=== PATIENT | male | born 1935 | race Caucasian/White ===

== ENCOUNTER → 2016-06-14 | Outpatient (CLI) | payer OTHER ==
[~2016-06-14] MED LIST: ACETAMINOPHEN325 M1 PO; ADALAT CC30 MG; ASA81BEC PO; CARDURA2 MG PO; CARDURA4 MG PO; COZAAR; DICLOFENAC SODI75 M1; DICLOFENAC SODI75 MG PO; FENOFIBRATE145 MG; FLOMAX0.4 MG PO; FLONASE 0.05%50 MCG NASAL; LIORESAL 10 MG10 MG PO; LISINOPRIL20 MG PO; LOPRESSOR; LOPRESSOR25 PO; PLAVIX 75 MG TA75 MG PO; PRAVACHOL; SIMVASTATIN20 MG PO; ZOLOFT 50 MG TA50 MG PO
--- NOTE | ~2016-06-14 | SLE ---
[facility] [address] [place] [address] POLYSOMNOGRAPHY STUDY Name: LESLIE GORMAN Room #: REG CL M..#: [id number] Admission: 06/14/16 Attend Phys: Hector Dobbs MD Discharge: Date of : 35 Report #: [id number] THIS REPORT FOR: //name// CC: Chang Dean MD HISTORY: 81-year-old, height 5 feet 7 inches, weight 206 pounds. Usually goes to bed between 9 and 10 p.m., gets out of bed 7 to 8 a.m. Does not know if he snores. No definite daytime somnolence. Sleep study October 2015 suggested a trial of BiPAP, IPAP of 20, EPAP of 8. On this download, his AHI was 40 on that setting. COMMENTS: PVCs noted with episodes of block. BiPAP TITRATION: Titrated IPAP of 14, EPAP of 8, IPAP is 16, EPAP of 8, IPAP of 17, EPAP of 8, IPAP of 19, EPAP of 8, IPAP of 20, EPAP of 8. At an IPAP of 20, EPAP of 8, the patient was seen for 13 minutes of which 7 minutes was in REM sleep. Apnea-hypopnea index was 0 events per sleep hour, low sat of 90%. The patient was not seen in supine REM sleep. He was seen in left lateral REM sleep. IMPRESSION: 1. History of obstructive sleep apnea. G47.33 2. A definite BiPAP setting where the patient was seen in supine REM sleep was not seen. 3. Significant arrhythmias. SUGGESTIONS: 1. In addition to specific therapy, the patient should be cautioned regarding driving or operating dangerous machinery unless fully alert. The patient should be counseled on attempting to achieve ideal body weight. 2. Usual sleep apnea suggestions recommended. 3. A Holter monitor may be considered. 4. BiPAP at IPAP of 20, EPAP of 8 with an Teresa full face large mask is recommended. Having the patient try to stay in the left lateral position. During our study because of the low baseline O2, 1 liter oxygen was added. 5. If signs and symptoms not improve with therapy, further evaluation is recommended. Please do not hesitate to contact if we may be of further assistance. 6. May need to consider AVAPS titration night. <ELECTRONICALLY SIGNED> By: Hector Dobbs MD 06/30/16 2316 03 26 Hector Dobbs MD /nt
== END ==
LOC: SLEEPLAB 11:17
DX: G47.33 Obstructive sleep apnea (adult) (pediatric) (principal)

== ENCOUNTER → 2018-02-27 | Outpatient (CLI) | payer OTHER ==
--- NOTE | ~2018-02-27 | SLE ---
[facility] [place] [address] POLYSOMNOGRAPHY STUDY Name: LESLIE GORMAN Room #: REG CLI ..#: [id number] Admission: 02/27/18 Attend Phys: Fred Prajapati MD Discharge: Date of : 35 Report #: [id number] THIS REPORT FOR: //name// CC: Fred Dean MD DATE OF SERVICE: 02/27/2018 ATTENDING PHYSICIAN: Sheldon Dean MD. The patient is 83 years old who weighs 206 pounds and is 67 inches tall with a BMI of 32.3. The patient has a history of sleep apnea and has been on BiPAP. During a recent download, his AHI was noted to be high. As a result, he was referred back [facility] for optimization of his BiPAP settings and possibility of adding a backup rate. During the night study, the patient spent 501 minutes in bed and slept for 370 minutes with a sleep efficiency of 74%. Sleep latency was 6.7 minutes with a REM latency of 241.7 minutes. Overall, sleep architecture showed increased stage 1 and stage 2 sleep, absent slow wave and reduced REM sleep, which was 14% of the total sleep time. During the night of study, EKG monitoring revealed an average heart rate of 60 beats per minute. No sustained arrhythmias were observed. Maximum heart rate during sleep was 74 beats per minute. PLMs were seen at an index of 160 per hour and 7.6 per hour caused EEG arousals. Nocturnal oximetry study revealed an average oxygen saturation of 91% with a lowest of 86%. The patient was started on BiPAP at a pressure of 12/6 and the pressure was increased to eliminate apneas, hypopneas as well as snoring. At a final pressure of 22/13, the patient slept for 70 minutes. The patient had 26 minutes of REM sleep. There was lateral REM sleep seen, but no supine sleep seen. Overall, the patient had very limited supine sleep throughout the study. The patient's AHI at this setting was 0 per hour and oxygen saturation remained above 90%. IMPRESSION: 1. Sleep apnea diagnosed by previous sleep study. 2. Severe periodic limb movements. RECOMMENDATIONS: 1. BiPAP at 22/13 completely eliminated the patient's sleep apnea and should be [facility] [address] [place] [address] POLYSOMNOGRAPHY STUDY Name: LESLIE GORMAN [id number] Admission: 02/27/18 Attend Phys: Fred Prajapati MD Discharge: Date of : 35 Report #: [id number] used on a nightly basis. 2. Follow up in 4-6 weeks to assess compliance with BiPAP and to document clinical improvement. I would also recommend review of the download data. 3. Avoid [employer] depressants. 4. The patient should also be further evaluated for symptoms of restless legs during the day and if present, he can be treated with dopaminergic agonist agents. 5. Weight loss is strongly advised. 6. Caution regarding driving until symptoms of sleep apnea have resolved with BIPAP therapy. <ELECTRONICALLY SIGNED> By: Fred Prajapati MD 03/01/18 2030 [id number] 1813 Fred Prajapati MD /nt
== END ==
LOC: SLEEPLAB 15:59
DX: G47.33 Obstructive sleep apnea (adult) (pediatric) (principal); G47.61 Periodic limb movement disorder